=== PATIENT | female | born 2000 | race Caucasian/White ===

== ENCOUNTER 2019-09-16 02:31 | Emergency (ER) | payer SELFPAY ==
--- OUTSIDE RECORDS SUMMARY | 2019-09-16 02:42 | XMS REPORT | Continuity of Care Document ---
:2000 Author Organization [facility] Allergies and Intolerances No Known Allergies Medications RxNorm Medication Dose Route Instructions Start Date End Date Status 457905 Acetaminophen 325 MG 1 tab oral orally every 4 06/15/2019 Active / Hydrocodone hours as needed. Bitartrate 5 MG Oral (as needed for Tablet pain) 2231 Cephalexin 500 mg oral orally 2 times per Active day 4278 Famotidine 20 mg oral orally 2 times per Active day 7646 Omeprazole 20 mg oral orally daily Active 96620 Ondansetron 4 mg oral orally every 6 Active hours as needed. (as needed for nausea and vomiting) 09114 Ondansetron 4 mg oral orally every 6 Active hours as needed. (as needed for nausea and vomiting) 578963 Ondansetron 4 MG 4 mg oral orally every 8 Active Oral Tablet hours as needed. (5 days) 040563 pantoprazole 40 MG 40 mg oral orally every Active Delayed Release Oral morning Tablet 779378 Sucralfate 1000 MG 1 g oral orally 2 times per Active Oral Tablet day Medications At Time Of Discharge RxNorm Medication Dose Route Instructions Start Date End Date Status 776420 Acetaminophen 325 MG 1 tab oral orally every 4 06/15/2019 Active / Hydrocodone hours as needed. Bitartrate 5 MG Oral (as needed for Tablet pain) 2231 Cephalexin 500 mg oral orally 2 times per Active day 4278 Famotidine 20 mg oral orally 2 times per Active day 7646 Omeprazole 20 mg oral orally daily Active 42605 Ondansetron 4 mg oral orally every 6 Active hours as needed. (as needed for nausea and vomiting) 12078 Ondansetron 4 mg oral orally every 6 Active hours as needed. (as needed for nausea and vomiting) 341463 Ondansetron 4 MG 4 mg oral orally every 8 Active Oral Tablet hours as needed. (5 days) 139162 pantoprazole 40 MG 40 mg oral orally every Active Delayed Release Oral morning Tablet 229119 Sucralfate 1000 MG 1 g oral orally 2 times per Active Oral Tablet day Problems No Data in the system Procedures No data in the system Results Laboratory Results Order: URINALYSIS ROUTINE Specimen Source : Body Site: Legend: (G,H) = High, (GG,HH,CH,#H) = Above High Threshold, (#,L) = Low, (##,CL,#L,LL) = Below Low Threshold, (C,CC,CA,#A,A) = Abnormal LOINC Test Result Flag Range Units Date 57786 1Color Ur YELLOW 06/13/2019 23:43 38188-9 1Turbidity Ur Ql HAZY ! CLEAR 06/13/2019 23:43 5811-5 1Sp Gr Ur Strip 1.015 1.000-1.030 06/13/2019 23:43 5803-2 1pH Ur Strip 7.0 5.0-8.0 06/13/2019 23:43 66078-7 1WBC # Ur Strip 2+ ! NEGATIVE 06/13/2019 23:43 5802-4 1Nitrite Ur Ql Strip NEGATIVE NEGATIVE 06/13/2019 23:43 5804-0 1Prot Ur Strip-mCnc 30 [ 1+] ! NEGATIVE mg/dL 06/13/2019 23:43 5792-7 1Glucose Ur Strip-mCnc NORMAL NORMAL mg/dL 06/13/2019 23:43 5797-6 1Ketones Ur Strip-mCnc 150 ! NEGATIVE mg/dL 06/13/2019 23:43 70012-7 1Urobilinogen Ur NORMAL NORMAL mg/dL 06/13/2019 23:43 Strip-mCnc 51143-9 1Bilirub Ur Strip-mCnc NEGATIVE NEGATIVE mg/dL 06/13/2019 23:43 5794-3 1Hgb Ur Ql Strip 3+ ! NEGATIVE 06/13/2019 23:43 Performing Lab Footnotes:[facility] - [id number] - [address] [place] [address] JOSE BEASLEY Order: URINE MICROSCOPIC Specimen Source: Body Site: Legend: (G,H) = High, (GG,HH,CH,#H) = Above High Threshold, (#,L) = Low, (##,CL,#L,LL) = Below Low Threshold, (C,CC,CA,#A,A) = Abnormal LOINC Test Result Flag Range Units Date 1URINE MICROSCOPIC EXAM 5821-4 1WBC #/area UrnS HPF 5-10 ! 0-2 /HPF 06/13/2019 23:43 5808-1 1RBC # UrnS HPF 10-25 ! NONE SEEN /HPF 06/13/2019 23:43 Interpretive Ana: 1The [place] [employer] has defined Microscopic Hematuria as 3 or more RBC per high powered field from a single positive urinalysis with microscopy. 47410-6 1Bacteria UrnS Ql Micro MODERATE ! NONE SEEN /HPF 06/13/2019 23: 43 5787-7 1Epi Cells #/area UrnS HPF MODERATE ! NONE SEEN /HPF 06/13/2019 23:43 Performing Lab Footnotes:[facility] - [id number] - [address] [place] [address] JOSE Martins JOSE MANUELD1 Order: CBC DIFF Specimen Source: Body Site: Legend: (G,H) = High, (GG, HH,CH,#H) = Above High Threshold, (#,L) = Low, (##,CL,#L,LL) = Below Low Threshold, (C,CC,CA,#A,A) = Abnormal LOINC Test Result Flag Range Units Date 6690-2 1WBC # Bld Auto 8.9 4.8-10.8 K/uL 06/13/2019 22:25 66999-0 1RBC # Bld 4.51 4.20-5.40 M/uL 06/13/2019 22:25 718-7 1Hgb Bld-mCnc 14.0 12.0-16.0 gm/dL 06/13/2019 22:25 4544-3 1Hct VFr Bld Auto 39.6 36.0-48.0 % 06/13/2019 22:25 787-2 1MCV RBC Auto 87.8 80.0-100.0 fL 06/13/2019 22:25 48271-7 1MCHC RBC-mCnc 35.4 30.0-36.5 % 06/13/2019 22:25 79302-9 1MCH RBC Qn 31.1 27.0-34.0 pg 06/13/2019 22:25 34186-0 1RDW RBC 11.1 11.0-15.0 % 06/13/2019 22:25 777-3 1Platelet # Bld Auto 268 130-450 K/uL 06/13/2019 22:25 47282-8 1PMV Bld Auto 8.1 6.0-12.0 fL 06/13/2019 22:25 751-8 1Neutrophils # Bld Auto 89 H 37-80 % 06/13/2019 22:25 84039-0 1Lymphocytes NFr Bld 9 L 10-50 % 06/13/2019 22:25 5905-5 1Monocytes NFr Bld Auto 1 0-12 % 06/13/2019 22:25 89590-4 1Eosinophil # Bld 0 <=8 % 06/13/2019 22:25 704-7 1Basophils # Bld Auto 0 <=3 % 06/13/2019 22:25 98678-6 1Neutrophils # Bld 7.9 1.8-8.6 K/uL 06/13/2019 22:25 731-0 1Lymphocytes # Bld Auto 0.8 0.5-5.0 K/uL 06/13/2019 22:25 742-7 1Monocytes # Bld Auto 0.1 0.0-1.3 K/uL 06/13/2019 22:25 25453-3 1Eosinophil # Bld 0.0 0.0-0.9 K/uL 06/13/2019 22:25 704-7 1Basophils # Bld Auto 0.0 0.0-0.3 K/ul 06/13/2019 22:25 Performing Lab Footnotes:[facility] - [id number] - [address] [place] [address] JOSE RICHARDD1 Order: COMPREHENSIVE PANEL Specimen Source: Body Site: Legend: (G,H) = High, (GG,HH,CH,#H) = Above High Threshold, (#,L) = Low, (##,CL,#L,LL) = Below Low Threshold, (C,CC,CA,#A,A) = Abnormal LOINC Test Result Flag Range Units Date 2951-2 1Sodium SerPl-sCnc 138 136-145 mmol/L 06/13/2019 22:25 2823-3 1Potassium SerPl-sCnc 3.6 3.5-5.2 mmol/L 06/13/2019 22:25 2075-0 1Chloride SerPl-sCnc 105 100-108 mmol/L 06/13/2019 22:25 2028-9 1CO2 SerPl-sCnc 20 L 21-32 mmol/L 06/13/2019 22:25 2345-7 1Glucose SerPl-mCnc 115 H 70-100 mg/dL 06/13/2019 22:25 3094-0 1BUN SerPl-mCnc 16 7-21 mg/dL 06/13/2019 22:25 2160-0 1Creat SerPl-mCnc 1.2 0.6-1.3 mg/dL 06/13/2019 22:25 Interpretive Ana: 1Normal Kidney Function or Mild Disease - GFR >OR= 60 Chronic Kidney Disease - GFR 15-59 Renal Failure - GFR < 15 GFR not calculated on patients under 18 years of age. Calculated (estimated) GFR is based on the MDRD Study equation, which assumes a steady state for creatinine. Estimated GFR may not be appropriate for medication dosing. 57473-8 1Ca-I SerPl-mCnc 9.7 8.5-10.8 mg/dL 06/13/2019 22:25 09314-0 1GFR/BSA.pred SerPl-ArVRat >60 06/13/2019 22:25 38975-7 1Bilirub Bld-mCnc 0.9 0.0-1.2 mg/dL 06/13/2019 22:25 2885-2 1Prot SerPl-mCnc 7.7 6.4-8.2 gm/dL 06/13/2019 22:25 1751-7 1Albumin SerPl-mCnc 4.7 3.4-4.8 gm/dL 06/13/2019 22:25 6768-6 1ALP SerPl-cCnc 60 40-150 U/L 06/13/2019 22:25 1742-6 1ALT SerPl-cCnc 14 0-55 U/L 06/13/2019 22:25 1920-8 1AST SerPl-cCnc 16 5-37 U/L 06/13/2019 22:25 Performing Lab Footnotes:[facility] - [id number] - [address] [place] [address] JOSE BEASLEY Order: LIPASE Specimen Source: Body Site: Legend: (G,H) = High, (GG,HH, CH,#H) = Above High Threshold, (#,L) = Low, (##,CL,#L,LL) = Below Low Threshold , (C,CC,CA,#A,A) = Abnormal LOINC Test Result Flag Range Units Date 3040-3 1Lipase SerPl-cCnc 12 8-78 U/L 06/13/2019 22:25 Performing Lab Footnotes:[facility] - [id number] - [address] [place] [address] JOSE BEASLEY Order: TEST - SERUM Specimen Source: Body Site: Legend: (G,H ) = High, (GG,HH,CH,#H) = Above High Threshold, (#,L) = Low, (##,CL,#L,LL) = Below Low Threshold, (C,CC,CA,#A,A) = Abnormal LOINC Test Result Flag Range Units Date 2118-06 1HCG Preg SerPl Ql NEGATIVE 06/13/2019 22:25 1Detection Level: >=10 mIU/mL Performing Lab Footnotes:[facility] - [id number] [place] [address] DIEUDONNE RICKIZZYOMRich Microbiology Results w Susceptibilities Order: CULTURE URINE Specimen Source: Urine Body Site: UrineCultural Observations:Mixed growth consistent with vaginal jamal [id number] Lab Footnotes:[facility] - [id number] [place] [address] JOSE BEASLEY Social History Code Code System Social History Observation Description Dates Observed 632898171 SNOMED CT Current Smoking Status Never smoker UNK AdministrativeGender Sex Assigned At Unknown Vital Signs Code Code System Vitals Value Date 8310-5 LOINC Body Temperature 98.1 [degF] 06/14/2019 8865-8 LOINC Pulse Rate 86 {beats}/min 06/14/2019 9279-1 LOINC Respiratory Rate 18 /min 06/14/2019 53956-8 LOINC O2% BldC Oximetry 97 % 06/14/2019 8480-6 LOINC BP Systolic 118 mm[Hg] 06/14/2019 8462-4 LOINC BP Diastolic 72 mm[Hg] 06/14/2019 8302-2 LOINC Height 58.5 [in_i] 06/13/2019 69941-8 LOINC Weight 52.2 kg 06/13/2019 3140-1 LOINC Body surface area Derived from formula 1.45 m2 06/13/2019 58384-0 LOINC BMI (Body Mass Index) 23.8 kg/m2 06/13/2019 Goals Section No data in the system Health Concerns No data in the systemEncounter Diagnosis Date Code Code System Diagnosis Status R10.13 ICD10 EPIGASTRIC PAIN Active Advance Directives PT STATES NO ADVANCE DIRECTIVES Directive Type Effective Date Indirect Sales Representative Notes Supporting Document Name Address Phone No Directive Type 07/22/2019 6:55:00 Not Specified Not Specified Not Specified None No specified PM Encounters Encounter Diagnosis Location Date EPIGASTRIC PAIN [facility] 06/13/2019 Family History Family history not obtained Functional Status Code Functional Condition Code System Date Status Independent adls SNOMED CT 06/13/2019 Active Appears well nourished/hydrated SNOMED CT 06/13/2019 Active Immunizations No data in the system Medical Equipment No data in the system Mental Status Code Cognitive Condition Code System Date Status Moves all extremities SNOMED CT 06/13/2019 Active No acute distress SNOMED CT 06/13/2019 Active [address]140 Orientated SNOMED CT 06/13/2019 Active 652486456 Mentally alert SNOMED CT 06/13/2019 Active Assessment and Plan Assessments No data in the systemPlan Of Treatment No data in the systemPending Tests No data in the system Hospital Discharge Instructions No data in the system Reason for Visit Reason for Visit Abdominal Pain
--- OUTSIDE RECORDS SUMMARY | 2019-09-16 02:42 | XMS REPORT | Continuity of Care Document ---
:1999 Author Organization [facility] Allergies and Intolerances No Known Allergies Medications RxNorm Medication Dose Route Instructions Start Date End Date Status 936054 Acetaminophen 325 MG 1 tab oral orally every 4 06/15/2019 Active / Hydrocodone hours as needed. Bitartrate 5 MG Oral (as needed for Tablet pain) 2231 Cephalexin 500 mg oral orally 2 times per Active day 4278 Famotidine 20 mg oral orally 2 times per Active day 7646 Omeprazole 20 mg oral orally daily Active 57447 Ondansetron 4 mg oral orally every 6 Active hours as needed. (as needed for nausea and vomiting) 57714 Ondansetron 4 mg oral orally every 6 Active hours as needed. (as needed for nausea and vomiting) 576051 Ondansetron 4 MG 4 mg oral orally every 8 Active Oral Tablet hours as needed. (5 days) 793774 pantoprazole 40 MG 40 mg oral orally every Active Delayed Release Oral morning Tablet 760790 Sucralfate 1000 MG 1 g oral orally 2 times per Active Oral Tablet day Medications At Time Of Discharge RxNorm Medication Dose Route Instructions Start Date End Date Status 322603 Acetaminophen 325 MG 1 tab oral orally every 4 06/15/2019 Active / Hydrocodone hours as needed. Bitartrate 5 MG Oral (as needed for Tablet pain) 2231 Cephalexin 500 mg oral orally 2 times per Active day 4278 Famotidine 20 mg oral orally 2 times per Active day 7646 Omeprazole 20 mg oral orally daily Active 08974 Ondansetron 4 mg oral orally every 6 Active hours as needed. (as needed for nausea and vomiting) 32821 Ondansetron 4 mg oral orally every 6 Active hours as needed. (as needed for nausea and vomiting) 242171 Ondansetron 4 MG 4 mg oral orally every 8 Active Oral Tablet hours as needed. (5 days) 598461 pantoprazole 40 MG 40 mg oral orally every Active Delayed Release Oral morning Tablet 620894 Sucralfate 1000 MG 1 g oral orally 2 times per Active Oral Tablet day Problems No Data in the system Procedures No data in the system Results Laboratory Results Order: GC-CHLAMYDIA AMPLIFIED ASSAY Specimen Source: Urine Body Site: Urine Legend: (G,H) = High, (GG,HH,CH,#H) = Above High Threshold, (#,L) = Low, (##,CL,#L,LL) = Below Low Threshold, (C,CC,CA ,#A,A) = Abnormal LOINC Test Result Flag Range Units Date 1C trach DNA XXX Ql PCR NEGATIVE NEGATIVE 06/15/2019 00:23 Interpretive Ana: 1A negative result does not rule out Chlamydia trachomatis infection because results are dependent on adequate specimen collection, absence of inhibitors, and sufficient DNA to be detected. Methodology: Nucleic Acid Amplification (DIAMANTE) 13867-8 1N gonorrhoea DNA XXX Ql PCR NEGATIVE NEGATIVE 06/15/2019 00:23 Interpretive Ana: 1A negative result does not rule out Neisseria gonorrhoeae infection because results are dependent on adequate specimen collection, absence of inhibitors, and sufficient DNA to be detected. Performing Lab Footnotes:[facility] - [id number] - [address] [place] [address] JOSE BEASLEY Order: URINALYSIS ROUTINE Specimen Source: Body Site: Legend: (G,H) = High, (GG,HH,CH,#H) = Above High Threshold, (#,L) = Low, (##,CL,#L,LL) = Below Low Threshold, (C,CC,CA,#A,A) = Abnormal LOINC Test Result Flag Range Units Date 5778 1Color Ur YELLOW 06/15/2019 00:23 88862-4 1Turbidity Ur Ql CLEAR CLEAR 06/15/2019 00:23 5811-5 1Sp Gr Ur Strip 1.025 1.000-1.030 06/15/2019 00:23 5803-2 1pH Ur Strip 6.0 5.0-8.0 06/15/2019 00:23 83381-3 1WBC # Ur Strip 1+ ! NEGATIVE 06/15/2019 00:23 5802-4 1Nitrite Ur Ql Strip NEGATIVE NEGATIVE 06/15/2019 00:23 5804-0 1Prot Ur Strip-mCnc 100 [ 2+] ! NEGATIVE mg/dL 06/15/2019 00:23 5792-7 1Glucose Ur Strip-mCnc NORMAL NORMAL mg/dL 06/15/2019 00:23 5797-6 1Ketones Ur Strip-mCnc 150 ! NEGATIVE mg/dL 06/15/2019 00:23 69589-1 1Urobilinogen Ur 1 ! NORMAL mg/dL 06/15/2019 00:23 Strip-mCnc 08047-7 1Bilirub Ur Strip-mCnc 1 ! NEGATIVE mg/dL 06/15/2019 00:23 5794-3 1Hgb Ur Ql Strip 3+ ! NEGATIVE 06/15/2019 00:23 Performing Lab Footnotes:[facility] - [id number] - [address] [place] [address] JOSE Martins [email or web address] Order: URINE MICROSCOPIC Specimen Source: Body Site: Legend: (G,H) = High, (GG,HH,CH,#H) = Above High Threshold, (#,L) = Low, (##,CL,#L,LL) = Below Low Threshold, (C,CC,CA,#A,A) = Abnormal LOINC Test Result Flag Range Units Date 1URINE MICROSCOPIC EXAM 5821-4 1WBC #/area UrnS HPF 5-10 ! 0-2 /HPF 06/15/2019 00:23 5808-1 1RBC # UrnS HPF 50-100 ! NONE SEEN /HPF 06/15/2019 00:23 Interpretive Ana: 1The [place] [employer] has defined Microscopic Hematuria as 3 or more RBC per high powered field from a single positive urinalysis with microscopy. 46464-8 1Bacteria UrnS Ql Micro FEW ! NONE SEEN /HPF 06/15/2019 00:23 5787-7 1Epi Cells #/area UrnS HPF MODERATE ! NONE SEEN /HPF 06/15/2019 00:23 8247-9 1Mucous Threads UrnS Ql Micro MODERATE ! NONE SEEN /HPF 2018 00:23 Performing Lab Footnotes:[facility] - [id number] - [address] [place] [address] JOSE KINGOMD1 Order: AMYLASE Specimen Source: Body Site: Legend: (G,H) = High, (GG,HH ,CH,#H) = Above High Threshold, (#,L) = Low, (##,CL,#L,LL) = Below Low Threshold , (C,CC,CA,#A,A) = Abnormal LOINC Test Result Flag Range Units Date 1799-04 1Amylase Ur-cCnc 67 25-125 U/L 06/14/2019 21:40 Performing Lab Footnotes:[facility] - [id number] - [address] [place] [address] JOSE KINGOMD1 Order: CBC DIFF Specimen Source: Body Site: Legend: (G,H) = High, (GG, HH,CH,#H) = Above High Threshold, (#,L) = Low, (##,CL,#L,LL) = Below Low Threshold, (C,CC,CA,#A,A) = Abnormal LOINC Test Result Flag Range Units Date 902 1WBC # Bld Auto 4.7 L 4.8-10.8 K/uL 06/14/2019 21:40 29874-6 1RBC # Bld 4.73 4.20-5.40 M/uL 06/14/2019 21:40 718-7 1Hgb Bld-mCnc 14.3 12.0-16.0 gm/dL 06/14/2019 21:40 4544-3 1Hct VFr Bld Auto 41.9 36.0-48.0 % 06/14/2019 21:40 787-2 1MCV RBC Auto 88.6 80.0-100.0 fL 06/14/2019 21:40 95933-1 1MCHC RBC-mCnc 34.2 30.0-36.5 % 06/14/2019 21:40 83010-5 1MCH RBC Qn 30.3 27.0-34.0 pg 06/14/2019 21:40 72559-2 1RDW RBC 11.3 11.0-15.0 % 06/14/2019 21:40 777-3 1Platelet # Bld Auto 243 130-450 K/uL 06/14/2019 21:40 21178-6 1PMV Bld Auto 7.8 6.0-12.0 fL 06/14/2019 21:40 751-8 1Neutrophils # Bld Auto 67 37-80 % 06/14/2019 21:40 39364-9 1Lymphocytes NFr Bld 27 10-50 % 06/14/2019 21:40 5905-5 1Monocytes NFr Bld Auto 5 0-12 % 06/14/2019 21:40 34896-3 1Eosinophil # Bld 0 <=8 % 06/14/2019 21:40 704-7 1Basophils # Bld Auto 1 <=3 % 06/14/2019 21:40 17925-8 1Neutrophils # Bld 3.2 1.8-8.6 K/uL 06/14/2019 21:40 731-0 1Lymphocytes # Bld Auto 1.3 0.5-5.0 K/uL 06/14/2019 21:40 742-7 1Monocytes # Bld Auto 0.2 0.0-1.3 K/uL 06/14/2019 21:40 42626-2 1Eosinophil # Bld 0.0 0.0-0.9 K/uL 06/14/2019 21:40 704-7 1Basophils # Bld Auto 0.1 0.0-0.3 K/ul 06/14/2019 21:40 Performing Lab Footnotes:[facility] - [id number] - [address] [place] [address] JOSE Martins JOSE MANUELD1 Order: COMPREHENSIVE PANEL Specimen Source: Body Site: Legend: (G,H) = High, (GG,HH,CH,#H) = Above High Threshold, (#,L) = Low, (##,CL,#L,LL) = Below Low Threshold, (C,CC,CA,#A,A) = Abnormal LOINC Test Result Flag Range Units Date 2951-2 1Sodium SerPl-sCnc 139 136-145 mmol/L 06/14/2019 21:40 2823-3 1Potassium SerPl-sCnc 3.3 L 3.5-5.2 mmol/L 06/14/2019 21:40 5-0 1Chloride SerPl-sCnc 103 100-108 mmol/L 06/14/2019 21:40 8-9 1CO2 SerPl-sCnc 24 21-32 mmol/L 06/14/2019 21:40 2345-7 1Glucose SerPl-mCnc 94 70-100 mg/dL 06/14/2019 21:40 3094-0 1BUN SerPl-mCnc 15 7-21 mg/dL 06/14/2019 21:40 2160-0 1Creat SerPl-mCnc 1.1 0.6-1.3 mg/dL 06/14/2019 21:40 Interpretive Ana: 1Normal Kidney Function or Mild Disease - GFR >OR= 60 Chronic Kidney Disease - GFR 15-59 Renal Failure - GFR < 15 GFR not calculated on patients under 18 years of age. Calculated (estimated) GFR is based on the MDRD Study equation, which assumes a steady state for creatinine. Estimated GFR may not be appropriate for medication dosing. 02840-0 1Ca-I SerPl-mCnc 10.0 8.5-10.8 mg/dL 06/14/2019 21:40 47686-1 1GFR/BSA.pred SerPl-ArVRat >60 06/14/2019 21:40 98009-6 1Bilirub Bld-mCnc 1.0 0.0-1.2 mg/dL 06/14/2019 21:40 2885-2 1Prot SerPl-mCnc 8.0 6.4-8.2 gm/dL 06/14/2019 21:40 1751-7 1Albumin SerPl-mCnc 4.9 H 3.4-4.8 gm/dL 06/14/2019 21:40 6768-6 1ALP SerPl-cCnc 60 40-150 U/L 06/14/2019 21:40 1742-6 1ALT SerPl-cCnc 15 0-55 U/L 06/14/2019 21:40 1920-8 1AST SerPl-cCnc 16 5-37 U/L 06/14/2019 21:40 Performing Lab Footnotes:[facility] - [id number] - [address] [place] [address] JOSE BEASLEY Order: LIPASE Specimen Source: Body Site: Legend: (G,H) = High, (GG,HH, CH,#H) = Above High Threshold, (#,L) = Low, (##,CL,#L,LL) = Below Low Threshold , (C,CC,CA,#A,A) = Abnormal LOINC Test Result Flag Range Units Date 0 1Lipase SerPl-cCnc 20 8-78 U/L 06/14/2019 21:40 Performing Lab Footnotes:[facility] - [id number] [place] [address] JOSE KINGOMD1 Microbiology Results w Susceptibilities Order: CULTURE URINE Specimen Source: Urine Body Site: UrineCultural Observations:Growth not [id number] Lab Footnotes:[facility] - [id number] [place] [address] JOSE KINGOMRich Radiology Results Order: US-ABDOMEN/BACK LIMITED (RUQ) Exam Completion Date:06/14/2019 21: 10:58 PM RIGHT UPPER QUADRANT ABDOMINAL ULTRASOUND CLINICAL INFORMATION: epigastric and RUQ pain -- UNSPECIFIED ABDOMINAL PAIN COMPARISON: None. TECHNIQUE: Sonographic evaluation of the right upper quadrant was performed using grayscale ultrasound. FINDINGS: Liver echogenicity: Normal. Focal Lesions: No. Gallbladder: No gallstones. No pericholecystic fluid. No tenderness to transducer pressure. Gallbladder Wall: Normal. Common Bile Duct: 3 mm. Pancreas: Visualized, unremarkable. Right Kidney: 8.8 cm in length. Echogenicity: Normal Hydronephrosis: No Calculi: No Focal Lesions: No IVC superior: Patent. IMPRESSION: Unremarkable right upper quadrant abdominal ultrasound exam. END OF IMPRESSION I have personally reviewed the images and the Resident's/Fellow's interpretation and agree with or edited the findings. [facility] submits Radiology results to [facility] and [facility] then provides those same results to [facility]. All results are available to [facility] and [facility] provider portal users. [facility] DICOM images are available to the [facility] provider portal users only. [facility] DICOM images are not available to the [facility] provider portal users. There is no current [facility] cross[facility] functionality allowing images sean available through the [facility] to [facility] connectivity. Interpreted By: Koby Odell M.D. Electronically signed By: Torie Fair M.D. Read By: TORIE FAIR Date: 06/14/2019 23:29 Social History Code Code System Social History Observation Description Dates Observed 261779348 SNOMED CT Current Smoking Status Never smoker UNK AdministrativeGender Sex Assigned At Unknown Vital Signs Code Code System Vitals Value Date 8310-5 [facility] Body Temperature 98.5 [degF] 06/15/2019 8865-8 INC Pulse Rate 75 {beats}/min 06/15/2019 9279-1 [facility] Respiratory Rate 21 /min 06/15/2019 58545-3 [facility] O2% BldC Oximetry 97 % 06/15/2019 8480-6 [facility] Systolic 108 mm[Hg] 06/15/2019 8462-4 [facility] BP Diastolic 61 mm[Hg] 06/15/2019 8302-2 LOINC Height 60 [in_i] 06/14/2019 97876-1 LOINC Weight 50 kg 06/14/2019 3140-1 [facility] Body surface area Derived from formula 1.45 m2 06/14/2019 13289-1 [facility] BMI (Body Mass Index) 21.6 kg/m2 06/14/2019 Goals Section No data in the system Health Concerns No data in the systemEncounter Diagnosis Date Code Code System Diagnosis Status R10.13 ICD10 EPIGASTRIC PAIN Active Advance Directives PT STATES NO ADVANCE DIRECTIVES Directive Type Effective Date Liquified Natural [employer] Technician Notes Supporting Document Name Address Phone No Directive Type 07/22/2019 6:55:00 Not Specified Not Specified Not Specified None No specified PM Encounters Encounter Diagnosis Location Date EPIGASTRIC PAIN [facility] 06/14/2019 Family History Family history not obtained Functional Status Code Functional Condition Code System Date Status Independent adls SNOMED CT 06/15/2019 Active Immunizations No data in the system Medical Equipment No data in the system Mental Status Code Cognitive Condition Code System Date Status Oriented x [address] 06/15/2019 Active No acute distress SNOMED CT 06/15/2019 Active Assessment and Plan Assessments No data in the systemPlan Of Treatment No data in the systemPending Tests No data in the system Hospital Discharge Instructions No data in the system Reason for Visit Reason for Visit Abdominal Pain
--- OUTSIDE RECORDS SUMMARY | 2019-09-16 02:42 | XMS REPORT | Summary of Care ---
:2000 Author Organization [facility] Address [address] [place] [address] Care Team Providers Name Role Phone Pcp, No Primary Care Provider Unavailable Reason for Visit Reason Comments Abdominal Pain Encounter Details Date Type Department Care Team Description 09/14/2019 - Emergency EMERGENCY DEPARTMENT [facility] Nausea (Primary Dx) 09/15/2019 [address] [place] [address] Allergies No Known Allergiesdocumented as of this encounter (statuses as of 09/15/2019) Medications Medication Sig Dispensed Refills Start Date End Date Status ondansetron (ZOFRAN) 4 Take 4 mg by 0 Active MG tablet mouth every 8 (eight) hours as needed for Nausea documented as of this encounter (statuses as of 09/15/2019) Active Problems Not on filedocumented as of this encounter (statuses as of 09/15/2019) Social History Tobacco Use Types Packs/Day Years Used Date Former Smoker 0 Alcohol Use Drinks/Week oz/Week Comments Yes Sex Assigned at Date Recorded Not on file Job Start Date Occupation Industry Not on file Not on file Not on file Travel History Travel Start Travel End No recent travel history available. documented as of this encounter Last Filed Vital Signs Vital Sign Reading Time Taken Comments Blood Pressure 134/87 09/15/2019 12:15 AM EST Pulse 69 09/15/2019 12:15 AM EST Temperature 37.2 09/15/2019 12:15 AM EST C (99 F) Respiratory Rate 16 09/15/2019 12:15 AM EST Oxygen Saturation 100% 09/15/2019 12:15 AM EST Inhaled Oxygen Concentration - - Weight 54.4 kg (120 lb) 09/14/2019 9:29 PM EST Height 152.4 cm (5') 09/14/2019 9:29 PM EST Body Mass Index 23.44 09/14/2019 9:29 PM EST documented in this encounter Discharge Instructions AttachmentsThe following attachments cannot be sent through Care Everywhere.Vomiting (Adult) ([place] Citizen)documented in this encounter Plan of Treatment Name Type Priority Associated Diagnoses Order Schedule Urinalysis with Lab STAT STAT for 1 Occurrences microscopic starting 09/14/2019 until 09/14/2019 documented as of this encounter Procedures Procedure Name Priority Date/Time Associated Comments Diagnosis CT ABDOMEN PELVIS STAT 09/14/2019 11:45 Results for this WITH CONTRAST 91113 PM EST procedure are in the results section. CBC AND DIFFERENTIAL STAT 09/14/2019 10:33 Results for this PM EST procedure are in the results section. BASIC METABOLIC PANEL STAT 09/14/2019 10:33 Results for this PM EST procedure are in the results section. POCT ISTAT BHCG Routine 09/14/2019 10:32 Results for this PM EST procedure are in the results section. POCT ISTAT CHEM8 Routine 09/14/2019 10:25 Results for this PM EST procedure are in the results section. documented in this encounter Results CT Abdomen Pelvis with Contrast (09/14/2019 11:45 PM EST) Specimen Narrative Performed At PROCEDURE INFORMATION: [facility] Exam: CT Abdomen And Pelvis With Contrast Exam date and time: 09/14/2019 11:26 PM Clinical history: 19 years old, female; Abdominal pain; Additional info: Abd pain, nausea, vomiting TECHNIQUE: Imaging protocol: Computed tomography of the abdomen and pelvis with intravenous contrast. Radiation optimization: All CT scans at this facility use at least one of these dose optimization techniques: automated exposure control; mA and/or kV adjustment per patient size (includes targeted exams where dose is matched to clinical indication); or iterative reconstruction. Contrast material: 300; Contrast volume: 100 ml; Contrast route: IV; COMPARISON: CT ABDOMEN PELVIS WITH CONTRAST [id number] 07/29/2019 6:10 AM FINDINGS: Liver: Normal. No mass. Gallbladder and bile ducts: Normal. No calcified stones. No ductal dilation. Pancreas: Normal. No ductal dilation. Spleen: Normal. No splenomegaly. Adrenals: Normal. No mass. Kidneys and ureters: Normal. No hydronephrosis. Stomach and bowel: Unremarkable. No obstruction. No mucosal thickening. Appendix: Normal appendix. Intraperitoneal space: Mild pelvic free fluid, likely physiologic. Vasculature: Unremarkable. No abdominal aortic aneurysm. Lymph nodes: Unremarkable. No enlarged lymph nodes. Bladder: Unremarkable as visualized. Reproductive: Unremarkable as visualized. Bones/joints: Unremarkable. No acute fracture. Soft tissues: Unremarkable. IMPRESSION: 1. Mild pelvic free fluid which is likely physiologic. 2. No additional acute abdominal/pelvic CT findings. Normal appendix. THIS DOCUMENT HAS BEEN ELECTRONICALLY SIGNED BY ARLEN GIMENEZ MD Procedure Note Interface, Received Via [employer] System - 09/15/2019 12:07 AM EST PROCEDURE INFORMATION: Exam: CT Abdomen And Pelvis With Contrast Exam date and time: 09/14/2019 11:26 PM Clinical history: 19 years old, female; Abdominal pain; Additional info: Abd pain, nausea, vomiting TECHNIQUE: Imaging protocol: Computed tomography of the abdomen and pelvis with intravenous contrast. Radiation optimization: All CT scans at this facility use at least one of these dose optimization techniques: automated exposure control; mA and/or kV adjustment per patient size (includes targeted exams where dose is matched to clinical indication); or iterative reconstruction. Contrast material: 300; Contrast volume: 100 ml; Contrast route: IV; COMPARISON: CT ABDOMEN PELVIS WITH CONTRAST [id number] 07/29/2019 6:10 AM FINDINGS: Liver: Normal. No mass. Gallbladder and bile ducts: Normal. No calcified stones. No ductal dilation. Pancreas: Normal. No ductal dilation. Spleen: Normal. No splenomegaly. Adrenals: Normal. No mass. Kidneys and ureters: Normal. No hydronephrosis. Stomach and bowel: Unremarkable. No obstruction. No mucosal thickening. Appendix: Normal appendix. Intraperitoneal space: Mild pelvic free fluid, likely physiologic. Vasculature: Unremarkable. No abdominal aortic aneurysm. Lymph nodes: Unremarkable. No enlarged lymph nodes. Bladder: Unremarkable as visualized. Reproductive: Unremarkable as visualized. Bones/joints: Unremarkable. No acute fracture. Soft tissues: Unremarkable. IMPRESSION: 1. Mild pelvic free fluid which is likely physiologic. 2. No additional acute abdominal/pelvic CT findings. Normal appendix. THIS DOCUMENT HAS BEEN ELECTRONICALLY SIGNED BY ARLEN GIMENEZ MD Performing Organization Address City/State/Zipcode Phone Number [facility] [address] [place] [address] Basic Metabolic Panel (09/14/2019 10:33 PM EST) Bicarbonate 19 (L) 22 - 29 mmol/L [facility] Chloride 105 98 - 107 mmol/L [facility] Creatinine 0.81 0.50 - 0.90 [facility] mg/dL [facility] Glucose 116 70 - 140 mg/dL [facility] Potassium 3.0 (L) 3.4 - 5.1 [facility] mmol/L [facility] Sodium 137 136 - 145 [facility] mmol/L [facility] Blood Urea Nitrogen 10 6 - 20 mg/dL [facility] Anion Gap 13 8 - 15 mmol/L [facility] Osmolality, Dany 284 275 - 300 [facility] mosm/kg [facility] BUN/Cre Ratio 12 [facility] Calcium 9.3 8.6 - 10.0 [facility] mg/dL [facility] GFR Non >90 >60 [facility] [place] 2008 CDK-EPI mL/min/1.73m2 [facility] GFR >90 >60 [facility] 2009 CKD-EPI mL/min/1.73m2 [facility] Specimen Plasma Performing Organization Address City/State/Zipcoms Phone Number [facility] [address] [place] [address] [phone] [facility] [address] [place] [address] Pathology CBC and Differential (09/14/2019 10:33 PM EST) White Blood Cell 7.6 4.5 - 13 [facility] 10*3/uL [facility] Red Blood Cell 4.23 4.1 - 5.3 [facility] 10*6/uL [facility] Hemoglobin 12.6 11.5 - 15.5 [facility] g/dL [facility] Hematocrit 37.4 36 - 45 % [facility] Mean Cell Volume 88.4 80 - 96 fL [facility] Mean Cell Hemoglobin 29.7 27 - 33 pg [facility] Mean Cell Hgb Conc 33.5 32.0 - 36.0 [facility] g/dL [facility] Red Cell Dist Width 12.3 11.5 - 14.5 % [facility] Platelet Count 245 150 - 400 [facility] 10*3/uL [facility] Differential Type Automated Diff [facility] Neutrophil 71 % [facility] Lymphocyte 23 % [facility] Monocyte 6 % [facility] Eosinophil 0 % [facility] Basophil 0 % [facility] Abs Neutrophil 5.41 1.8 - 7.0 [facility] 10*3/uL [facility] Abs Lymphocyte 1.77 1.2 - 4.0 [facility] 10*3/uL [facility] Abs Monocyte 0.42 0 - 0.8 [facility] 10*3/uL [facility] Abs Eosinophil 0.00 0 - 0.5 [facility] 10*3/uL [facility] Abs Basophil 0.03 0 - 0.2 [facility] 10*3/uL [facility] Nucleated Red Blood 0 0 - 0 [facility] Cells /100{WBCs} [facility]ology Specimen EDTA Whole Blood Performing Organization Address City/[facility] Phone Number [facility] [address] [place] [address] [phone] [facility] [address] [place] [address] Pathology POCT i-STAT BHCG (09/14/2019 10:32 PM EST) Pathologist [facility] i-STAT BHCG <5 <5 [IU]/L [facility] Comment: Hospital POC (NOTE) Levels between 5 and 25 [IU]/L may indicate early and should be repeated after 48 hours. Specimen Whole Blood Performing Organization Address City/[facility] Phone Number POINT OF CARE TEST [address] [place], [place] [id number] [place] [address] POC [address] [place] [address] POCT i-STAT Chem 8 (09/14/2019 10:25 PM EST) i-STAT Sodium 138 136 - 145 [facility] mmol/L [facility] POC i-STAT Potassium 2.8 (LL) 3.4 - 5.1 [facility] mmol/L [facility] POC i-STAT Chloride 106 98 - 107 mmol/L [facility] POC i-STAT TCO2 21 (L) 22 - 29 mmol/L [facility] POC i-STAT Ionized 1.21 1.13 - 1.32 [facility] System Calcium mmol/L [facility] POC i-STAT Glucose 115 70 - 140 mg/dL [facility] POC i-STAT BUN 9 6 - 20 mg/dL [facility] POC i-STAT Creatinine 0.8 0.50 - 0.90 [facility] mg/dL Hospital POC i-STAT Hematocrit 33 (L) 36 - 45 % [facility] POC i-STAT Hemoglobin 11.2 (L) 11.5 - 15.5 [facility] System g/dL [facility] POC Specimen Whole Blood Performing Organization Address City/State/Zipcode Phone Number POINT OF CARE TEST [address] [place], [place] [id number] [place] [address] POC [address] [place] [address] documented in this encounter Visit Diagnoses Diagnosis Nausea - Primary Nausea alone documented in this encounter Administered Medications Medication Order MAR Action Action Date Dose Rate Site capsaicin (CAPZASIN HP) 0.1 % Given 09/15/2019 12:12 AM EST topical cream Topical, Once, Stefanie 09/15/19 at 0000, For 1 dose, Apply to abdomen, diphenhydrAMINE (BENADRYL) injection 25 mg New Bag 09/14/2019 10:30 PM EST 25 mg 25 mg, Intravenous, Once, Thu09/14/19 at 2200, For 1 dose iohexol (OMNIPAQUE) New Syringe/Cartridge 09/14/2019 11:37 PM 100 mLs Right Arm 300 MG/ML contrast EST injection 100 mL 100 mL, Given by IV, 1 TIME IMAGING, Thu09/14/19 at 2330, For 1 dose morphine sulfate (PF) injection 2 mg New Bag 09/14/2019 10:30 PM EST 2 mg 2 mg, Intravenous, Once, Thu09/14/19 at 2200, For 1 dose ondansetron (ZOFRAN) injection 4 mg Given 09/14/2019 10:30 PM EST 4 mg 4 mg, Given by IV, Once, Thu09/14/19 at 2200, For 1 dose potassium chloride (K-DUR,KLOR-CON) Given 09/14/2019 11:50 PM EST 40 mEq dissolvable tablet 40 mEq 40 mEq, Oral, Once, Thu09/14/19 at 2345, For 1 dose, May be dissolved in water for patients with a G-Tube or unable to swallow. If concern for clogging G-Tube, may contact Pharmacy to switch formulation to a powder packet., sodium chloride 0.9 % bolus 1,000 mL New Bag 09/14/2019 10:30 PM EST 1,000 mLs 1,000 mL, Intravenous, Once, Thu09/14/19 at 2200, For 1 dose documented in this encounter
--- OUTSIDE RECORDS SUMMARY | 2019-09-16 02:42 | XMS REPORT | Summary of Care ---
:2000 Author Organization [facility] Address [address] [place] [address] Care Team Providers Name Role Phone Pcp, No Primary Care Provider Unavailable Reason for Visit Reason Comments Emesis Encounter Details Date Type Department Care Team Description 09/14/2019 [facility] [address] [place] [address] [phone] Non-intractable [address] [facility] [address] [place] [address] [phone] vomiting with nausea, [place] [address] unspecified vomiting [phone] type (Primary Dx) Allergies No Known Allergiesdocumented as of this encounter (statuses as of 09/14/2019) Medications Medication Sig Dispensed Refills Start Date End Date Status ondansetron (ZOFRAN) 4 Take 4 mg by 0 Active MG tablet mouth every 8 (eight) hours as needed for Nausea documented as of this encounter (statuses as of 09/14/2019) Active Problems Not on filedocumented as of this encounter (statuses as of 09/14/2019) Social History Tobacco Use Types Packs/Day Years Used Date Current Some Day Smoker 0 Alcohol Use Drinks/Week oz/Week Comments Yes Sex Assigned at Date Recorded Not on file Job Start Date Occupation Industry Not on file Not on file Not on file Travel History Travel Start Travel End No recent travel history available. documented as of this encounter Last Filed Vital Signs Vital Sign Reading Time Taken Comments Blood Pressure 112/74 09/14/2019 9:49 AM EST Pulse 74 09/14/2019 9:49 AM EST Temperature 36.8 09/14/2019 9:49 AM EST C (98.2 F) Respiratory Rate 16 09/14/2019 9:49 AM EST Oxygen Saturation 99% 09/14/2019 9:49 AM EST Inhaled Oxygen Concentration - - Weight 54.4 kg (120 lb) 09/14/2019 6:00 AM EST Height 152.4 cm (5') 09/14/2019 6:00 AM EST Body Mass Index 23.44 09/14/2019 6:00 AM EST documented in this encounter Discharge Instructions AttachmentsThe following attachments cannot be sent through Care Everywhere.Vomiting (Adult) (Bahraini)documented in this encounter Plan of Treatment Not on filedocumented as of this encounter Procedures Procedure Name Priority Date/Time Associated Comments Diagnosis HCG, URINE STAT 09/14/2019 8:05 Results for this QUALITATIVE AM EST procedure are in the results section. URINALYSIS WITH STAT 09/14/2019 8:05 Results for this MICROSCOPIC AM EST procedure are in the results section. EKG 12-LEAD - CMAXX 09/14/2019 7:34 REPORT AM EST EKG 12-LEAD - CMAXX 09/14/2019 7:34 REPORT AM EST EKG 12-LEAD STAT 09/14/2019 7:34 Results for this AM EST procedure are in the results section. POCT ISTAT TROPONIN Routine 09/14/2019 7:28 Results for this AM EST procedure are in the results section. CBC AND DIFFERENTIAL STAT 09/14/2019 7:24 Results for this AM EST procedure are in the results section. LIPASE LEVEL STAT 09/14/2019 7:24 Results for this AM EST procedure are in the results section. HEPATIC FUNCTION STAT 09/14/2019 7:24 Results for this PANEL A AM EST procedure are in the results section. BASIC METABOLIC PANEL STAT 09/14/2019 7:24 Results for this AM EST procedure are in the results section. XR CHEST FRONTAL ONLY STAT 09/14/2019 7:16 Results for this 255[address] AM EST procedure are in the results section. documented in this encounter Results HCG, Urine Qualitative (09/14/2019 8:05 AM EST) HCG, Urine NegativeComment Negative [facility] Qualitative : NEGATIVE: Univ Clin either no HCG Pathology or too low to detect, <20 mU/mL Specific [place], 1.055 (H) 1.003 - 1.030 [facility] Urine Univ Clin Pathology Specimen Urine Performing Organization Address City/State/[facility] Phone Number [facility] CL[facility]ICAL PATHOLOGY [address] [place] [address] [phone] [facility] [address] [place] [address] Pathology Urinalysis with microscopic (09/14/2019 8:05 AM EST) Color Ayana [facility] Pathology Clarity Clear [facility] Pathology Specific [place] 1.055 (H) 1.003 - 1.030 [facility] Pathology PH Urine 5.0 5.0 - 8.0 [facility] Pathology Total Protein UA 100 (A) Negative mg/dL [facility] Pathology Glucose UA Negative Negative mg/dL [facility] Pathology Ketone Urine 80 (A) Negative mg/dL [facility] Pathology Bilirubin 1+ (A)Comment: Negative [facility] False-positive Univ Clin results may occur Pathology with certain food additives or medications. Hemoglobin, Urine Negative Negative [facility] Pathology Leukocyte Negative Negative Qasim/uL [facility] Clin Pathology Nitrite Negative Negative [facility] Pathology WBC 3 0 - 5 /HPF [facility] Pathology RBC 3 0 - 3 /HPF [facility] Pathology Squam Epithel, UA 14 (A) None /HPF [facility] Pathology Mucus, UA 3+ (A) None /LPF [facility] Pathology Amorphous, UA Trace (A) None /HPF [facility] Pathology Specimen Urine Performing Organization Address [facility] Phone Number [facility] CL[facility]ICAL [facility] [address] [place] [address] [facility] [address] [place] [address] Pathology EKG 12-LEAD - CMAXX REPORT (09/14/2019 7:34 AM EST) Narrative Performed At EKG 12-LEAD - CMAXX REPORT (09/14/2019 7:34 AM EST) Narrative Performed At EKG 12 Lead (09/14/2019 7:34 AM EST) Specimen Narrative Performed At Ventricular Rate: [facility] EKG 63 BPM Atrial Rate: 63 BPM P-R Interval: 146 ms QRS Duration: 92 ms Q-T Interval: 412 ms QTC Calculation(Bazett): 421 ms P Erwin: 65 degrees R Erwin: 89 degrees T Erwin: 70 degrees : SINUS RHYTHM WITH SINUS ARRHYTHMIA : INCOMPLETE RIGHT BUNDLE BRANCH BLOCK PATTERN : BORDERLINE ECG : NO PREVIOUS ECGS AVAILABLE : Confirmed by MD CONTRERAS DANIEL ([id number]) on 09/14/2019 8:53:29 : AM Procedure Note Interface, Received Via [employer] - 09/14/2019 8:53 AM EST Ventricular Rate: 63 BPM Atrial Rate: 63 BPM P-R Interval: 146 ms QRS Duration: 92 ms Q-T Interval: 412 ms QTC Calculation(Bazett): 421 ms P Erwin: 65 degrees R Erwin: 89 degrees T Erwin: 70 degrees : SINUS RHYTHM WITH SINUS ARRHYTHMIA : INCOMPLETE RIGHT BUNDLE BRANCH BLOCK PATTERN : BORDERLINE ECG : NO PREVIOUS ECGS AVAILABLE : Confirmed by MD CONTRERAS DANIEL ([id number]) on 09/14/2019 8:53:29 : AM Performing Organization Address City/[facility] Phone Number [facility] EKG POCT i-STAT Troponin (09/14/2019 7:28 AM EST) i-STAT Troponin I 0.00 0.00 - 0.08 ng/mL [facility] POC Specimen Whole Blood Performing Organization Address City/[facility] Phone Number POINT OF CARE TEST [address] POC [address] [place] [address] Basic Metabolic Panel (09/14/2019 7:24 AM EST) Bicarbonate 18 (L) 22 - 29 mmol/L [facility] Pathology Chloride 104 98 - 107 mmol/L [facility] Pathology Creatinine 0.91 (H) 0.50 - 0.90 [facility] mg/dL [facility] Clin Pathology Glucose 134 70 - 140 mg/dL [facility] Pathology Potassium 3.3 (L) 3.4 - 5.1 [facility] mmol/L [facility] Clin Pathology Sodium 139 136 - 145 [facility] mmol/L [facility] Clin Pathology Blood Urea Nitrogen 12 6 - 20 mg/dL [facility] Pathology Anion Gap 17 (H) 8 - 15 mmol/L [facility] Pathology Osmolality, Dany 290 275 - 300 [facility] mosm/kg Univ Clin Pathology BUN/Cre Ratio 13 [facility] Pathology Calcium 9.7 8.6 - 10.0 [facility] mg/dL Univ Clin Pathology GFR Non >90 >60 [facility] Kuwaiti 2008 CDK-EPI mL/min/1.73m2 Univ Clin Pathology GFR >90 >60 [facility] 2009 CKD-EPI mL/min/1.73m2 [facility] Clin Pathology Specimen Plasma Performing Organization Address [facility] Phone Number [facility] PATHOLOGY [address] [place] [address] [facility] [address] [place] [address] Pathology Lipase Level (09/14/2019 7:24 AM EST) Lipase 51 13 - 60 U/L [facility] Pathology Specimen Plasma Performing Organization Address [facility] Phone Number [facility] PATHOLOGY [address] [place] [address] [phone] [facility] [address] [place] [address] Pathology Hepatic Function Panel (09/14/2019 7:24 AM EST) Albumin 4.7 3.5 - 5.2 g/dL [facility] Pathology Bilirubin, Total 0.7 <1.2 mg/dL [facility] Pathology Bilirubin, Direct 0.2 <0.3 mg/dL [facility] Pathology Alkaline Phosphatase 49 35 - 104 U/L [facility] Pathology AST/SGO 20 <32 U/L [facility] Pathology ALT/SGP 20 <33 U/L [facility] Pathology Total Protein 7.3 6.4 - 8.3 g/dL [facility] Pathology Specimen Plasma Performing Organization Address [facility] Phone Number [facility] PATHOLOG[facility] [address] [place] [address] [facility] [address] [place] [address] Pathology CBC and Differential (09/14/2019 7:24 AM EST) White Blood Cell 5.8 4.5 - 13 [facility] 10*3/uL [facility] Clin Pathology Red Blood Cell 4.45 4.1 - 5.3 [facility] 10*6/uL Univ Clin Pathology Hemoglobin 13.2 11.5 - 15.5 [facility] g/dL Univ Clin Pathology Hematocrit 39.4 36 - 45 % [facility] Pathology Mean Cell Volume 88.5 80 - 96 fL [facility] Univ Clin Pathology Mean Cell Hemoglobin 29.6 27 - 33 pg [facility] Univ Clin Pathology Mean Cell Hgb Conc 33.4 32.0 - 36.0 [facility] g/dL Univ Clin Pathology Red Cell Dist Width 13.0 11.5 - 14.5 % [facility] Univ Clin Pathology Platelet Count 255 150 - 400 [facility] 10*3/uL Univ Clin Pathology Differential Type Automated Diff [facility] Univ Clin Pathology Neutrophil 70 % [facility] Univ Clin Pathology Lymphocyte 25 % [facility] Univ Clin Pathology Monocyte 5 % [facility] Univ Clin Pathology Eosinophil 0 % [facility] Univ Clin Pathology Basophil 0 % [facility] Univ Clin Pathology Abs Neutrophil 4.09 1.8 - 7.0 [facility] 10*3/uL Univ Clin Pathology Abs Lymphocyte 1.44 1.2 - 4.0 [facility] 10*3/uL Univ Clin Pathology Abs Monocyte 0.29 0 - 0.8 [facility] Med 10*3/uL Univ Clin Pathology Abs Eosinophil 0.01 0 - 0.5 [facility] 10*3/uL Univ Clin Pathology Abs Basophil 0.02 0 - 0.2 [facility] 10*3/uL Univ Clin Pathology Nucleated Red Blood 0 0 - 0 [facility] Cells /100{WBCs} Univ Clin Pathology Specimen EDTA Whole Blood Performing Organization Address City/State/Zipcode Phone Number [facility] CL[facility]ICAL PATHOLOG[facility] [address] [place], [place] [phone] [facility] Univ Clin [address] [place] [address] Pathology XR Chest Frontal Only (09/14/2019 7:16 AM EST) Specimen Narrative Performed At PROCEDURE INFORMATION: [facility] RADIOLOGY Exam: XR Chest, 1 View Exam date and time: 09/14/2019 7:16 AM Clinical history: 19 years old, female; Other: Chest pain, vomiting TECHNIQUE: Imaging protocol: XR of the chest Views: 1 view. COMPARISON: No relevant prior studies available. FINDINGS: Lungs: Unremarkable. No consolidation. Pleural space: Unremarkable. No pleural effusion. No pneumothorax. Heart/Mediastinum: Unremarkable. No cardiomegaly. Bones/joints: Unremarkable. IMPRESSION: No acute findings. THIS DOCUMENT HAS BEEN ELECTRONICALLY SIGNED BY MARK HONEYCUTT MD Procedure Note Interface, Received Via [employer] - 09/14/2019 7:25 AM EST PROCEDURE INFORMATION: Exam: XR Chest, 1 View Exam date and time: 09/14/2019 7:16 AM Clinical history: 19 years old, female; Other: Chest pain, vomiting TECHNIQUE: Imaging protocol: XR of the chest Views: 1 view. COMPARISON: No relevant prior studies available. FINDINGS: Lungs: Unremarkable. No consolidation. Pleural space: Unremarkable. No pleural effusion. No pneumothorax. Heart/Mediastinum: Unremarkable. No cardiomegaly. Bones/joints: Unremarkable. IMPRESSION: No acute findings. THIS DOCUMENT HAS BEEN ELECTRONICALLY SIGNED BY MARK HONEYCUTT MD Performing Organization Address City/State/Zipcode Phone Number [facility] RADIOLOGY [address] [place] [address] documented in this encounter Visit Diagnoses Diagnosis Non-intractable vomiting with nausea, unspecified vomiting type - Primary documented in this encounter Administered Medications Medication Order MAR Action Action Date Dose Rate Site Alum & Mag Hydroxide-Simeth Given 09/14/2019 8:50 AM EST 30 mLs (MAALOX PLUS) 200-200-20 MG/5ML suspension 30 mL 30 mL, Oral, Once, Thu09/14/19 at 0845, For 1 dose haloperidol lactate (HALDOL) Given by IV push 09/14/2019 7:40 AM EST 1 mg injection 1 mg 1 mg, Intramuscular, Once, Thu09/14/19 at 0700, For 1 dose ketorolac (TORADOL) injection 15 Given by IV push 09/14/2019 8:50 AM EST 15 mg mg 15 mg, Intravenous, Once, Thu09/14/19 at 0845, For 1 dose ondansetron (ZOFRAN) injection 4 mg Given by IV push 09/14/2019 8:49 AM EST 4 mg 4 mg, Given by IV, Once, Thu09/14/19 at 0830, For 1 dose sodium chloride 0.9 % bolus 1,000 mL New Bag 09/14/2019 7:39 AM EST 1,000 mLs 1,000 mL, Intravenous, Once, Thu09/14/19 at 0700, For 1 dose sodium chloride 0.9 % bolus 1,000 mL New Bag 09/14/2019 8:58 AM EST 1,000 mLs 1,000 mL, Intravenous, Once, Thu09/14/19 at 0900, For 1 dose documented in this encounter
--- OUTSIDE RECORDS SUMMARY | 2019-09-16 02:42 | XMS REPORT | Continuity of Care Document ---
:[address] [facility] Allergies and Intolerances No Known Allergies Medications RxNorm Medication Dose Route Instructions Start Date End Date Status 442265 Acetaminophen 325 MG 1 tab oral orally every 4 06/15/2019 Active / Hydrocodone hours as needed. Bitartrate 5 MG Oral (as needed for Tablet pain) 2231 Cephalexin 500 mg oral orally 2 times per Active day 4278 Famotidine 20 mg oral orally 2 times per Active day 7646 Omeprazole 20 mg oral orally daily Active 45737 Ondansetron 4 mg oral orally every 6 Active hours as needed. (as needed for nausea and vomiting) 38897 Ondansetron 4 mg oral orally every 6 Active hours as needed. (as needed for nausea and vomiting) 053286 Ondansetron 4 MG 4 mg oral orally every 8 Active Oral Tablet hours as needed. (5 days) 526500 pantoprazole 40 MG 40 mg oral orally every Active Delayed Release Oral morning Tablet 656067 Sucralfate 1000 MG 1 g oral orally 2 times per Active Oral Tablet day Medications At Time Of Discharge RxNorm Medication Dose Route Instructions Start Date End Date Status 070070 Acetaminophen 325 MG 1 tab oral orally every 4 06/15/2019 Active / Hydrocodone hours as needed. Bitartrate 5 MG Oral (as needed for Tablet pain) 2231 Cephalexin 500 mg oral orally 2 times per Active day 4278 Famotidine 20 mg oral orally 2 times per Active day 7646 Omeprazole 20 mg oral orally daily Active 95522 Ondansetron 4 mg oral orally every 6 Active hours as needed. (as needed for nausea and vomiting) 30153 Ondansetron 4 mg oral orally every 6 Active hours as needed. (as needed for nausea and vomiting) 846803 Ondansetron 4 MG 4 mg oral orally every 8 Active Oral Tablet hours as needed. (5 days) 893251 pantoprazole 40 MG 40 mg oral orally every Active Delayed Release Oral morning Tablet 435007 Sucralfate 1000 MG 1 g oral orally 2 times per Active Oral Tablet day Problems No Data in the system Procedures No data in the system Results Laboratory Results Order: AMYLASE Specimen Source: Body Site : Legend: (G,H) = High, (GG,HH,CH,#H) = Above High Threshold, (#,L) = Low, (##, CL,#L,LL) = Below Low Threshold, (C,CC,CA,#A,A) = Abnormal LOINC Test Result Flag Range Units Date 1799-6 1Amylase Ur-cCnc 83 25-125 U/L 07/22/2019 21:41 Performing Lab Footnotes:[facility] - [id number] - [address] [place] [address] JOSE Martins GALE Order: COMPREHENSIVE PANEL Specimen Source: Body Site: Legend: (G,H) = High, (GG,HH,CH,#H) = Above High Threshold, (#,L) = Low, (##,CL,#L,LL) = Below Low Threshold, (C,CC,CA,#A,A) = Abnormal LOINC Test Result Flag Range Units Date 2951-2 1Sodium SerPl-sCnc 140 136-145 mmol/L 07/22/2019 21:41 2823-3 1Potassium SerPl-sCnc 4.0 3.5-5.2 mmol/L 07/22/2019 21:41 5-0 1Chloride SerPl-sCnc 103 100-108 mmol/L 07/22/2019 21:41 8-9 1CO2 SerPl-sCnc 17 L 21-32 mmol/L 07/22/2019 21:41 2345-7 1Glucose SerPl-mCnc 132 H 70-100 mg/dL 07/22/2019 21:41 3094-0 1BUN SerPl-mCnc 16 7-21 mg/dL 07/22/2019 21:41 2160-0 1Creat SerPl-mCnc 1.2 0.6-1.3 mg/dL 07/22/2019 21:41 Interpretive Ana: 1Normal Kidney Function or Mild Disease - GFR >OR= 60 Chronic Kidney Disease - GFR 15-59 Renal Failure - GFR < 15 GFR not calculated on patients under 18 years of age. Calculated (estimated) GFR is based on the MDRD Study equation, which assumes a steady state for creatinine. Estimated GFR may not be appropriate for medication dosing. 89496-7 1Ca-I SerPl-mCnc 11.2 H 8.5-10.8 mg/dL 07/22/2019 21:41 74416-8 1GFR/BSA.pred SerPl-ArVRat 60 07/22/2019 21:41 42267-9 1Bilirub Bld-mCnc 1.5 H 0.0-1.2 mg/dL 07/22/2019 21:41 2885-2 1Prot SerPl-mCnc 8.3 H 6.4-8.2 gm/dL 07/22/2019 21:41 1751-7 1Albumin SerPl-mCnc 5.3 H 3.4-4.8 gm/dL 07/22/2019 21:41 6768-6 1ALP SerPl-cCnc 71 40-150 U/L 07/22/2019 21:41 1742-6 1ALT SerPl-cCnc 16 0-55 U/L 07/22/2019 21:41 1920-8 1AST SerPl-cCnc 20 5-37 U/L 07/22/2019 21:41 Performing Lab Footnotes:[facility] - [id number] - [address] [place] [address] JOSE BEASLEY Order: LIPASE Specimen Source: Body Site: Legend: (G,H) = High, (GG,HH, CH,#H) = Above High Threshold, (#,L) = Low, (##,CL,#L,LL) = Below Low Threshold , (C,CC,CA,#A,A) = Abnormal LOINC Test Result Flag Range Units Date 3039-3 1Lipase SerPl-cCnc <5 L 8-78 U/L 07/22/2019 21:41 Performing Lab Footnotes:[facility] - [id number] - [address] [place] [address] JOSE RICHARDD1 Order: CBC DIFF Specimen Source: Body Site: Legend: (G,H) = High, (GG, HH,CH,#H) = Above High Threshold, (#,L) = Low, (##,CL,#L,LL) = Below Low Threshold, (C,CC,CA,#A,A) = Abnormal LOINC Test Result Flag Range Units Date 6690-2 1WBC # Bld Auto 15.4 H 4.8-10.8 K/uL 07/22/2019 20:30 79344-7 1RBC # Bld 4.83 4.20-5.40 M/uL 07/22/2019 20:30 718-7 1Hgb Bld-mCnc 14.7 12.0-16.0 gm/dL 07/22/2019 20:30 4544-3 1Hct VFr Bld Auto 42.5 36.0-48.0 % 07/22/2019 20:30 787-2 1MCV RBC Auto 88.1 80.0-100.0 fL 07/22/2019 20:30 69615-4 1MCHC RBC-mCnc 34.6 30.0-36.5 % 07/22/2019 20:30 12977-5 1MCH RBC Qn 30.5 27.0-34.0 pg 07/22/2019 20:30 18917-2 1RDW RBC 10.9 L 11.0-15.0 % 07/22/2019 20:30 777-3 1Platelet # Bld Auto 309 130-450 K/uL 07/22/2019 20:30 01492-2 1PMV Bld Auto 8.0 6.0-12.0 fL 07/22/2019 20:30 751-8 1Neutrophils # Bld Auto 94 H 37-80 % 07/22/2019 20:30 92744-2 1Lymphocytes NFr Bld 5 L 10-50 % 07/22/2019 20:30 5905-5 1Monocytes NFr Bld Auto 0 0-12 % 07/22/2019 20:30 03726-5 1Eosinophil # Bld 0 <=8 % 07/22/2019 20:30 704-7 1Basophils # Bld Auto 0 <=3 % 07/22/2019 20:30 16281-2 1Neutrophils # Bld 14.6 H 1.8-8.6 K/uL 07/22/2019 20:30 731-0 1Lymphocytes # Bld Auto 0.8 0.5-5.0 K/uL 07/22/2019 20:30 742-7 1Monocytes # Bld Auto 0.0 0.0-1.3 K/uL 07/22/2019 20:30 96991-0 1Eosinophil # Bld 0.0 0.0-0.9 K/uL 07/22/2019 20:30 704-7 1Basophils # Bld Auto 0.0 0.0-0.3 K/ul 07/22/2019 20:30 Performing Lab Footnotes:[facility] - [id number] - [address] [place] [address] JOSE BEASLEY Order: PT/INR Specimen Source: Body Site: Legend: (G,H) = High, (GG,HH, CH,#H) = Above High Threshold, (#,L) = Low, (##,CL,#L,LL) = Below Low Threshold , (C,CC,CA,#A,A) = Abnormal LOINC Test Result Flag Range Units Date 5902-2 1PT Time PPP 13.6 H 9.4-12.4 sec 07/22/2019 20:30 6301-6 1INR PPP 1.2 07/22/2019 20:30 Interpretive Ana: 1 INR INTERPERTATION 2.0-3.0 THERAPEUTIC MONITORING 2.5-3.5 HEART VALVE REPLACEMENT Performing Lab Footnotes:[facility] - [id number] - [address] [place] [address] JOSE BEASLEY Order: PTT Specimen Source: Body Site: Legend: (G,H) = High, (GG,HH,CH, #H) = Above High Threshold, (#,L) = Low, (##,CL,#L,LL) = Below Low Threshold, (C ,CC,CA,#A,A) = Abnormal LOINC Test Result Flag Range Units Date 3173-2 1aPTT Time Bld 35.2 25.6-36.4 sec 07/22/2019 20:30 Performing Lab Footnotes:[facility] - [id number] - [address] [place] [address] JOSE BEASLEY Social History Code Code System Social History Description Dates Observed Observation [id number] SNOMED CT Current Smoking Current some day Status smoker UNK AdministrativeGender Sex Assigned At Unknown Vital Signs Code Code System Vitals Value Date 8310-5 LOINC Body Temperature 99.7 [degF] 07/22/2019 8865-8 LOINC Pulse Rate 69 {beats}/min 07/22/2019 9279-1 LOINC Respiratory Rate 16 /min 07/22/2019 69923-0 LOINC O2% BldC Oximetry 98 % 07/22/2019 8480-6 LOINC BP Systolic 127 mm[Hg] 07/22/2019 8462-4 LOINC BP Diastolic 70 mm[Hg] 07/22/2019 8302-2 LOINC Height 60 [in_i] 07/22/2019 97768-6 LOINC Weight 54.5 kg 07/22/2019 3140-1 LOINC Body surface area Derived from formula 1.5 m2 07/22/2019 75487-0 LOINC BMI (Body Mass Index) 23.5 kg/m2 07/22/2019 Goals Section No data in the system Health Concerns No data in the systemEncounter Diagnosis Date Code Code System Diagnosis Status 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 Advance Directives PT STATES NO ADVANCE DIRECTIVES Directive Type Effective Date Hand Cloth Examiner Notes Supporting Document Name Address Phone No Directive Type 07/22/2019 6:55:00 Not Specified Not Specified Not Specified None No specified PM Encounters Encounter Diagnosis Location Date NONINFECTIVE GE & COLITIS [facility] 07/22/2019 Family History Family history not obtained Functional Status Code Functional Condition Code System Date Status Independent adls SNOMED CT 07/22/2019 Active Appears well nourished/hydrated SNOMED CT 07/22/2019 Active Immunizations No data in the system Medical Equipment No data in the system Mental Status Code Cognitive Condition Code System Date Status Moves all extremities SNOMED CT 07/22/2019 Active Mild distress SNOMED CT 07/22/2019 Active [id number] Mentally alert SNOMED CT 07/22/2019 Active Assessment and Plan Assessments No data in the systemPlan Of Treatment No data in the systemPending Tests No data in the system Hospital Discharge Instructions No data in the system Reason for Visit Reason for Visit Abdominal Pain
[2019-09-16] MEDS ORDERED: PROCHLORPERAZINE INJ 5 MG/ML 2 ML VIAL IV ONE (03:05)
[2019-09-16] MEDS ORDERED: Ketorolac INJ* 30 MG/ML 1 ML VIAL IV PUSH ONE (03:05)
[2019-09-16] MEDS ORDERED: NS 0.9% 1000 ML** 2,000 ML IV ONE (03:05)
[2019-09-16 03:19] LABS: ABS Lymphocytes 1.3 10^3/ul (1.0-4.8); ABS Monocytes 0.2 10^3/ul (0-0.8); ABS Neutrophils 5.5 10^3/ul (1.5-7.7); Hematocrit 42 % (35-47); Hemoglobin 14.4 g/dL (12.0-16.0); Lymphocyte % 17.9 %; Mean Corpuscular HGB Conc 34 g/dL (31-36); Mean Corpuscular Hemoglobin 30 pg (27-31); Mean Corpuscular Volume 88 fL (80-97); Mean Platelet Volume 8.4 fL (7.4-10.4); Nucleated Red Blood Cells % 0.1; Platelet Count 300 10^3/uL (150-450); Red Blood Count 4.79 10^6 /uL (3.70-4.87); Red Cell Distribution Width 13 % (10-15)
--- NOTE | 2019-09-16 03:19 | ED ---
Abdominal Pain/Female - HPI Summary HPI Summary: Patient is a 19 y/o F presenting to [facility] accompanied by two sisters, one brother, with complaints of abdominal pain and N/V/D. She states that she has been having episodes of this abdominal pain for the past few months intermittently. She notes that she had an extended period of this abdominal pain for the past 4- 5 days. Pain temporarily resolved but returned 4 hours ago. This pain is noted to be more severe. Patient also had onset of N/V/D. Fever is denied. She additionally states that she felt dizzy and numb. Patient notes that she has been evaluated previously for these Sx. She states that she had been prescribed Zofran but states this provided minimal relief. Patient has not been evaluated by plush brusher. PMHx is denied. On triage, pain is rated 10/10, nothing is noted to aggravate/alleviate Sx. Home medications and allergies are reviewed. - History of Current Complaint Chief Complaint: EDAbdPain Stated Complaint: ABD PAIN PER PT Time Seen by Provider: 09/16/19 03:00 Hx Obtained From: Patient Onset/Duration: Lasting Weeks, Still Present Timing: Intermittent Episode Lasting Severity Currently: Severe Pain Intensity: 10 Pain Scale Used: 0-10 Numeric Location: Diffuse Aggravating Factor(s): Nothing Alleviating Factor(s): Other: - zofran, minimal relief Associated Signs and Symptoms: Positive: Nausea, Vomiting, Diarrhea. Negative: Fever Allergies/Adverse Reactions: Allergies Allergy/AdvReac Type Severity Reaction Status Date / Time No Known Allergies Allergy Verified 09/16/19 02:33 Home Medications: Home Medications Zofran 4 MG TAB 4 mg PO DAILY 09/16/19 [History Confirmed 09/16/19] PMH/Surg Hx/FS Hx/Imm Hx Sensory History: Denies: Hx Legally Blind, Hx Deafness Opthamlomology History: Denies: Hx Legally Blind EENT History: Denies: Hx Deafness Infectious Disease History: No Infectious Disease History: Denies: Traveled Outside the [place] in Last 30 Days - Family History Known Family History: Positive: Other - no GI issues in siblings - Social History Alcohol Use: None Substance Use Type: Reports: Marijuana Smoking Status (MU): Light Every Day Tobacco Smoker Review of Systems Negative: Fever Positive: Abdominal Pain, Vomiting, Diarrhea, Nausea Neurological: Other - positive - dizziness Positive: Numbness All Other Systems Reviewed And Are Negative: Yes Physical Exam - Summary Physical Exam Summary: Appearance: Well-appearing, Well-nourished, lying in bed comfortably Skin: Warm, dry, no obvious rash Eyes: sclera anicteric, no conjunctival pallor ENT: mucous membranes moist, pharynx appears normal Neck: Supple, nontender Respiratory: Clear to auscultation, no signs of respiratory distress Cardiovascular: Normal S1, S2. No murmurs. Normal distal pulses in tibial and radial bilaterally. Abdomen: Mild generalized abdominal tenderness; Soft, normal active bowel sounds present Musculoskeletal: Normal, Strength/ROM Intact Neurological: A&Ox3, awake and alert, mentation is normal, speech is fluent and appropriate Psychiatric: affect is normal, does not appear anxious or depressed Triage Information Reviewed: Yes Vital Signs On Initial Exam: Initial Vitals Temp Pulse Resp BP Pulse Ox 97.5 F 69 18 131/93 98 09/16/19 02:34 09/16/19 02:34 09/16/19 02:34 09/16/19 02:34 09/16/19 02:34 Vital Signs Reviewed: Yes Procedures - Sedation Patient Received Moderate/Deep Sedation with Procedure: No Diagnostics - Vital Signs Vital Signs Temp Pulse Resp BP Pulse Ox 09/16/19 02:34 97.5 F 69 18 131/93 98 - Laboratory Result Diagrams: 09/16/19 03:09 09/16/19 03:09 Lab Statement: Any lab studies that have been ordered have been reviewed, and results considered in the medical decision making process. Re-Evaluation - Re-Evaluation First Eval Re-Evaluation Time: 05:43 Change: Improved Comment: Patient reports improvement in Sx after medications and states that she is agreeable with discharge to home at this present time. She was prescribed compazine and was given GI follow-up. Abdominal Pain Fem Course/Dx - Course Course Of Treatment: Patient is a 19 y/o F presenting to [facility] accompanied by two sisters, one brother, with complaints of abdominal pain and N/V/D. She states that she has been having episodes of this abdominal pain for the past few months intermittently. She notes that she had an extended period of this abdominal pain for the past 4-5 days. Pain temporarily resolved but returned 4 hours ago. This pain is noted to be more severe. Patient also had onset of N/V/ D. Fever is denied. She additionally states that she felt dizzy and numb. Patient notes that she has been evaluated previously for these Sx. She states that she had been prescribed Zofran but states this provided minimal relief. Patient has not been evaluated by plush brusher. PMHx is denied. On physical exam, minimal diffuse abdominal tenderness is noted. Bloodwork was obtained and WNL with exception of potassium 3.3, carbon dioxide 16, anion gap 16, glucose 109, lipase < 10. UA showed 2+ protein and ketones, squamous epith cells are present. During ED course, patient received fluids, Compazine 10 mg IV and toradol 10 mg IV. Patient reports improvement in Sx after medications and states that she is agreeable with discharge to home at this present time. She was prescribed compazine and was given GI follow-up. - Diagnoses Provider Diagnoses: Chronic abdominal pain Discharge ED - Sign-Out/Discharge Documenting (check all that apply): Patient Departure - discharge - Discharge Plan Condition: Stable Disposition: HOME Prescriptions: Prochlorperazine TAB* [Compazine Tab*] 10 mg PO Q6H PRN #15 tab PRN Reason: Nausea Patient Education Materials: Chronic Abdominal Pain (ED) Referrals: Guzman Morales MD [Medical Doctor] - Additional Instructions: Since this has become a recurrent problem for you, I think it would be helpful to see a GI specialist for further workup. - Billing Disposition and Condition Condition: STABLE Disposition: Home - Attestation Statements Document Initiated by Candelaria: Yes Documenting Scribe: ANEESH GUEVARA Provider For Whom Candelaria is Documenting (Include Credential): CHER VALENCIA MD Scribe Attestation: IANEESH, scribed for CHER VALENCIA MD on 09/18/19 at 1839. Scribe Documentation Reviewed: Yes Provider Attestation: The documentation as recorded by the ANEESH edouard accurately reflects the service I personally performed and the decisions made by me, CHER VALENCIA MD Status of Scribtaylor Document: Viewed
[2019-09-16 03:35] LABS: ALT 18 U/L (7-52); AST 17 U/L (13-39); Albumin 4.8 g/dL (3.2-5.2); Albumin/Globulin Ratio 1.8 (1-3); Alkaline Phosphatase 48 U/L (34-104); Anion Gap 16 mmol/L (2-11); BUN/Creatinine Ratio 19.6 (8-20); Blood Urea Nitrogen 18 mg/dL (6-24); CO2 Carbon Dioxide 16 mmol/L (22-32); Calcium 9.8 mg/dL (8.6-10.3); Chloride 104 mmol/L (101-111); EGFR African American 94.2 (>60); EGFR Non-African American 77.8 (>60); Globulin 2.7 g/dL (2-4); Glucose 109 mg/dL (70-100); Potassium 3.3 mmol/L (3.5-5.0); Sodium 136 mmol/L (135-145); Total Protein 7.5 g/dL (6.4-8.9)
[2019-09-16 03:42] LABS: HCG Pregnancy < 0.60 mIU/mL
[2019-09-16 05:11] LABS: Urine Appearance Cloudy; Urine Bacteria Absent (Absent); Urine Bilirubin Negative (Negative); Urine Blood Negative (Negative); Urine Color Yellow; Urine Glucose Negative (Negative); Urine Ketones 2+ (Negative); Urine Nitrite Negative (Negative); Urine Protein 2+(100 mg/dL) (Negative); Urine Red Blood Cell Absent (Absent); Urine Specific Gravity 1.033 (1.010-1.030); Urine Squamous Epithelial Cell Present (Absent); Urine Urobilinogen Negative (Negative); Urine White Blood Cell Absent (Absent)
[2019-09-16 05:44] VITALS: BP 126/75
[2019-09-16 05:47] LABS: Urine Benzodiazepine Screen None Detected (None Detect); Urine Opiates Screen None Detected (None Detect)
== END 2019-09-16 05:59 | disposition home or self-care (01) ==
LOC: ED 02:31
DX: R10.9 Unspecified abdominal pain (principal); G89.29 Other chronic pain; F17.200 Nicotine dependence, unspecified, uncomplicated
CPT/HCPCS: 36415; 80053; 80307; 81003; 81015; 83690; 84702; 85025; 96361; 96374; 96375; 99282; J0780; J1885

== ENCOUNTER 2022-06-28 00:18 | Inpatient (IN) ==
[2022-06-28] MEDS: Lactated Ringers 1000 ml BAG 1,000 ML IV ONE ×2 (00:56→01:42)
[2022-06-28 01:12] LABS: ABS Lymphocytes 2.1 10^3/ul (1.0-4.8); ABS Monocytes 0.6 10^3/ul (0-0.8); ABS Neutrophils 8.4 10^3/ul (1.5-7.7); Eosinophil % 0.1 %; Hematocrit 33 % (35-47); Hemoglobin 10.7 g/dL (12.0-16.0); Lymphocyte % 19.2 %; Mean Corpuscular HGB Conc 33 g/dL (31-36); Mean Corpuscular Hemoglobin 27 pg (27-31); Mean Corpuscular Volume 82 fL (80-97); Nucleated Red Blood Cells % 0.2; Platelet Count 305 10^3/uL (150-450); Red Blood Count 3.97 10^6 /uL (3.70-4.87); Red Cell Distribution Width 14 % (10-15); White Blood Count 11.1 10^3/uL (3.5-10.8)
[2022-06-28] MEDS ORDERED: Buffered Lidocaine 1% SYRIN 1 ml INTRADERM ONE (01:40)
[2022-06-28] MEDS ORDERED: OBEPIDURAL (200 ML) 200 ML EPIDURAL ONE (01:48)
[2022-06-28] MEDS ORDERED: Lidocaine 1% w EPI 1:200,000 SDV 30 ML VIAL ONE (01:48)
[2022-06-28] MEDS: Ondansetron 4 mg VIAL 2 MG/ML 2 ml VIAL IV PRN ×3 (01:49→19:44)
[2022-06-28] MEDS ORDERED: Lactated Ringers 1000 ml BAG 1,000 ML IV SCH ×3 (02:00→05:00)
[2022-06-28] MEDS ORDERED: Lactated Ringers 1000 ml BAG 1,000 ML IV ONE (02:38)
[2022-06-28] MEDS ORDERED: Sodium Citrate/Citric Acid LIQ 15 ML UDC PO PRN (02:38)
[2022-06-28] MEDS ORDERED: Phenylephrine 40 mcg/mL 10mL (400mcg) SYRINGE IV PUSH PRN ×2 (02:38)
[2022-06-28] MEDS ORDERED: OBEPIDURAL (200 ML) 200 ML EPIDURAL SCH (03:00)
[2022-06-28 03:23] LABS: Urine Appearance Cloudy; Urine Bilirubin Negative (Negative); Urine Color Yellow; Urine Glucose Negative (Negative); Urine Ketones 4+ (>=160mg/dL) (Negative); Urine Specific Gravity 1.025 (1.005-1.030)
[2022-06-28 03:24] LABS: Urine Benzodiazepine Screen None Detected (None Detect); Urine Blood Negative (Negative); Urine Cannabinoids Screen Presumptive Positive (None Detect); Urine Nitrite Negative (Negative); Urine Opiates Screen None Detected (None Detect); Urine Protein 1+ (30 mg/dL) (Negative); Urine Urobilinogen 0.2 (Negative) (Negative); Urine pH 7.5 (5.0-9.0)
[2022-06-28 03:41] LABS: Urine Amorphous Crystals Present (Absent); Urine Bacteria 1+ (Absent); Urine Red Blood Cell 1+(3-5/hpf) (Absent); Urine White Blood Cell Trace(0-5/hpf) (Absent)
[2022-06-28] MEDS ORDERED: Oxytocin in LR 20,000 MILLI.UNIT/1,000 ML BAG IV SCH (05:00)
[2022-06-28] MEDS ORDERED: Tetan/Diph/Pertus SYR(Tdap) 0.5 ML SYR(BOOSTRIX) use SYR contains LATEX IM ONE (05:00)
[2022-06-28] MEDS ORDERED: Dibucaine 1% OINT 28.35 GM TUBE PR PRN (05:00)
[2022-06-28] MEDS ORDERED: Glycerin ADULT 2.4 gm SUPP PR PRN (05:00)
[2022-06-28] MEDS ORDERED: Witch Hazel PAD JAR TOPICAL PRN (05:00)
[2022-06-28] MEDS ORDERED: Oxytocin 10 UNITS/ML 1 ML VIAL ONE (05:38)
[2022-06-28 11:29] LABS: HIV 4th Generation Nonreactive (Nonreactive)
[2022-06-29 06:29] LABS: ABS Lymphocytes 1.7 10^3/ul (1.0-4.8); ABS Monocytes 0.5 10^3/ul (0-0.8); ABS Neutrophils 7.1 10^3/ul (1.5-7.7); Eosinophil % 0.2 %; Hematocrit 30 % (35-47); Lymphocyte % 18.3 %; Mean Corpuscular HGB Conc 33 g/dL (31-36); Mean Corpuscular Hemoglobin 27 pg (27-31); Mean Corpuscular Volume 82 fL (80-97); Mean Platelet Volume 7.6 fL (7.4-10.4); Platelet Count 260 10^3/uL (150-450); Red Cell Distribution Width 15 % (10-15); White Blood Count 9.4 10^3/uL (3.5-10.8)
[2022-06-29 16:05] VITALS: BP 106/70
== END 2022-06-29 18:25 | disposition home or self-care (01) | DRG 560 ==
LOC: MCHOBOUT 00:18 → MCHOB 01:35
PROVIDERS: ADMIT Obstetrics & Gynecology; ATTEND Obstetrics & Gynecology